=== PATIENT | male | born 1965 | race Caucasian/White ===

== ENCOUNTER 2016-08-07 17:02 | Emergency (ER) | payer MEDICAID, OTHER ==
[2016-08-07] MEDS ORDERED: Sodium Chloride 0.9% 10 ML Syringe FLUSH PRN (17:15)
[2016-08-07] MEDS ORDERED: Sodium Chloride 0.9% 2.5 ML Syringe FLUSH PRN (17:15)
[2016-08-07 17:43] LABS: CHLORIDE,CL 103 mmol/L (98-110); SODIUM,NA 142 mmol/L (136-146)
[2016-08-07 17:59] VITALS: BP 113/81
--- NOTE | 2016-08-07 18:05 | EDM.PDOC ---
ED HPI GENERAL MEDICAL PROBLEM - General Chief Complaint: General Stated Complaint: CHEST PAIN Time Seen by Provider: 08/07/16 17:05 Source of Information: Reports: Patient History Limitations: Reports: No limitations, Intoxication - History of Present Illness INITIAL COMMENTS - FREE TEXT/NARRATIVE: History of present illness: [50-year-old male comes in complaining of chest pain, as well as acknowledging that he is an alcoholic and he fell and hit his head last night knocking teeth out as well as knocking him unconscious.] Review of systems: As per history of present illness and below otherwise all systems reviewed and negative. Past medical history: As per history of present illness and as reviewed below otherwise noncontributory. Surgical history: As per history of present illness and as reviewed below otherwise noncontributory. Social history: No reported history of drug or alcohol abuse. Family history: As per history of present illness and as reviewed below otherwise noncontributory. Physical exam: HEENT: Atraumatic, normocephalic, pupils reactive, negative for conjunctival pallor or scleral icterus, mucous membranes moist, throat clear, neck supple, nontender, trachea midline. Lungs: Clear to auscultation, breath sounds equal bilaterally, chest nontender. Heart: S1S2, regular, negative for clicks, rubs, or JVD. Abdomen: Soft, nondistended, nontender. Negative for masses or hepatosplenomegaly. Negative for costovertebral tenderness. Pelvis: Stable nontender. Genitourinary: Deferred. Rectal: Deferred. Extremities: Atraumatic, negative for cords or calf pain. Neurovascular unremarkable. Neuro: Awake, alert, oriented. Cranial nerves II through XII unremarkable. Cerebellum unremarkable. Motor and sensory unremarkable throughout. Exam nonfocal. Results are all negative for head CT as well as cardiac workup- is present at bedside willing to take patient home. Diagnostics: [Cardiac workup, CT of head] Therapeutics: [] Impression: [Alcohol intoxication, chest pain] Plan: [Discharge to home with ] Definitive disposition and diagnosis as appropriate pending reevaluation and review of above. 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 Cardiovascular History: Reports: Hypertension Respiratory History: Reports: None Gastrointestinal History: Reports: None Genitourinary History: Reports: None Musculoskeletal History: Reports: None Neurological History: Reports: Seizure Psychiatric History: Reports: Addiction, Anxiety, Depression, Psych Hospitalization(s), Suicide attempt, Suicidal ideation, Other (see below) Other Psychiatric History: alcohol abuse Endocrine/Metabolic History: Reports: None Hematologic History: Reports: None Immunologic History: Reports: None Oncologic (Cancer) History: Reports: None Dermatologic History: Reports: Eczema - Infectious Disease History Infectious Disease History: Reports: None - Past Surgical History Head Surgeries/Procedures: Reports: None HEENT Surgical History: Reports: None Cardiovascular Surgical History: Reports: None GI Surgical History: Reports: None Male Surgical History: Reports: None Endocrine Surgical History: Reports: None Neurological Surgical History: Reports: None Musculoskeletal Surgical History: Reports: None Dermatological Surgical History: Reports: None Social & Family History - Family History Family Medical History: Noncontributory Cardiac: Reports: Other (see below) Other Cardiac Family History: Paroxysmal atrial tachycardia - Tobacco Use Smoking Status *Q: Current Every Day Smoker Years of Tobacco use: 30 Packs/Tins Daily: 1 Used Tobacco, but Quit: No Second Hand Smoke Exposure: Yes - Caffeine Use Caffeine Use: Reports: None Caffeine Use Comment: 1 /day - Alcohol Use Days Per Week of Alcohol Use: 7 Number of Drinks Per Day: 8 Total Drinks Per Week: 56 - Recreational Drug Use Recreational Drug Use: No Drug Use in Last 12 Months: No Recreational Drug Use Frequency: Patient Refuses To Answer ED ROS GENERAL - Review of Systems Review Of Systems: See Below (See history of present illness) ED EXAM, GENERAL - Physical Exam Exam: See Below (See history of present illness) Course - Vital Signs Last Recorded V/S: Last Vital Signs Temp Pulse 107 H 08/07/16 17:04 Resp 16 08/07/16 17:04 BP 129/83 08/07/16 17:04 Pulse Ox 99 02/26/17 17:04 - Orders/Labs/Meds Orders: Active Orders 24 hr Category Date Time Status EKG Documentation Completion [RC] STAT Care 08/07/16 17:09 Active Chest 1V Frontal [CR] Stat Exams 08/07/16 17:09 Ordered CBC WITH AUTO DIFF [HEME] Stat Lab 08/07/16 17:09 Ordered COMPREHENSIVE METABOLIC PN,CMP [CHEM] Stat Lab 08/07/16 17:09 Ordered TROPONIN I [CHEM] Stat Lab 08/07/16 17:09 Ordered Departure - Departure Time of Disposition: 18:10 Disposition: Home, Self-Care 01 Condition: good Clinical Impression: Alcohol abuse, Atypical chest pain Instructions: Nonspecific Chest Pain, [id number] Additional Instructions: The following information is given to patients seen in the emergency department who are being discharged to home. This information is to outline your options for follow-up care. We provide all patients seen in our emergency department with a follow-up referral. The need for follow-up, as well as the timing and circumstances, are variable depending upon the specifics of your emergency department visit. If you don't have a primary care physician on staff, we will provide you with a referral. We always advise you to contact your personal physician following an emergency department visit to inform them of the circumstance of the visit and for follow-up with them and/or the need for any referrals to a consulting specialist. The emergency department will also refer you to a specialist when appropriate. This referral assures that you have the opportunity for follow-up care with a specialist. All of these measure are taken in an effort to provide you with optimal care, which includes your follow-up. Under all circumstances we always encourage you to contact your private physician who remains a resource for coordinating your care. When calling for follow-up care, please make the office aware that this follow-up is from your recent emergency room visit. If for any reason you are refused follow-up, please contact the [facility] Emergency Department at and asked to speak to the emergency department charge nurse. Followup with primary care provider one to 2 days He been provided with resources in the community to assist you in alcohol withdrawal as you have indicated is your desire Return to ED as needed only as discussed - My Orders Last 24 Hours: My Active Orders 08/07/16 17:09 EKG Documentation Completion [RC] STAT Chest 1V Frontal [CR] Stat CBC WITH AUTO DIFF [HEME] Stat COMPREHENSIVE METABOLIC PN,CMP [CHEM] Stat TROPONIN I [CHEM] Stat - Assessment/Plan Last 24 Hours: My Active Orders 08/07/16 17:09 EKG Documentation Completion [RC] STAT Chest 1V Frontal [CR] Stat CBC WITH AUTO DIFF [HEME] Stat COMPREHENSIVE METABOLIC PN,CMP [CHEM] Stat TROPONIN I [CHEM] Stat
--- NOTE | 2016-08-08 17:11 | CR ---
EXAM DATE: 08/07/16 PATIENT'S AGE: 50 Patient: MADDIE LOFTON Facility: [place], [place] Site . Site : 1965 Study: XRay Chest [id number] 5:27:50 PM Ordering Physician: Doctor Benavidez Final Report: INDICATION: chest pain COMPARISON: Chest x-ray dated 29 May 2016. FINDINGS: A single portable chest x-ray shows a normal cardiac silhouette. The lungs show no focal pulmonary opacities. Sharp pleural margins. No pneumothorax. IMPRESSION: No evidence of acute pulmonary abnormalities. Dictated by Roque Márquez MD @ 08/07/2016 5:37:23 PM Dictated by: Roque Márquez MD @ 08/07/2016 17:37:31 (Electronic Signature) Report Signed by Proxy and Original Signed Document filed in the Medical Record. MTDMichael
--- NOTE | 2016-08-08 17:13 | CT ---
EXAM DATE: 08/07/16 PATIENT'S AGE: 50 Patient: MADDIE LOFTON Facility: [place], [place] Site . Site : 1965 Study: CT Head WO CONT [id number]/2017 5:45:21 PM Ordering Physician: Doctor Benavidez Final Report: INDICATION: Pain. Technique: CT head without IV contrast. Comparison: CT head 05/10/2016. Findings: Opacification of some of the left mastoid air cells stable. No intracranial hemorrhage, edema, or mass-effect. Mild to intermediate diffuse cerebral atrophy greatest superiorly. Mild cerebellar atrophy stable. No intracranial hemorrhage, edema, or mass effect. Small low-density foci in the thalami and basal ganglia specially laterally some which are more distinct are either related to old lacunar infarcts or prominent perivascular spaces. Remainder negative. Impression: 1. Moderate chronic intracranial disease without acute intracranial disease. 2. Mild stable opacification of a few left mastoid air cells consistent with stable inflammation or edema. Dictated by Kleber Baer MD @ Aug 07 2016 5:51PM (Electronic Signature) Report Signed by Proxy and Original Signed Document filed in the Medical Record. JANETH
== END 2016-08-07 18:16 | disposition home or self-care (01) ==
LOC: MW.ED 17:02
DX: R07.89 Other chest pain (principal); F10.129 Alcohol abuse with intoxication, unspecified; I10 Essential (primary) hypertension; F41.8 Other specified anxiety disorders; F17.210 Nicotine dependence, cigarettes, uncomplicated
CPT/HCPCS: 36415; 70450; 70450-26; 71010; 71010-26; 80053; 82150; 83690; 84484; 85025; 93005; 99284; 99285-25

== ENCOUNTER 2016-10-03 23:47 | Inpatient (IN) | payer MEDICAID ==
[2016-10-04] MEDS ORDERED: MVI, Adult with Vitamin K 10 ML, Thiamine 100 MG, Folic Acid 1 MG in Sodium Chloride 0.... IV ONE ×4 (00:16)
--- NOTE | 2016-10-04 00:21 | EDM.PDOC ---
ED HPI Behavioral Health - General Chief Complaint: Behavioral/Psych Stated Complaint: MENTAL ISSUES Time Seen by Provider: 10/04/16 00:10 Source of Information: Reports: Patient, Police, RN - History of Present Illness INITIAL COMMENTS - FREE TEXT/NARRATIVE: He was brought to the emergency department today his states that he was suicidal. He spoke about "blowing his brains out "he told me he does not want to live. He states that he feels worthless. He states that he is an alcoholic and has been drinking. 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 Cardiovascular History: Reports: Hypertension Respiratory History: Reports: None Gastrointestinal History: Reports: None Genitourinary History: Reports: None Musculoskeletal History: Reports: None Neurological History: Reports: Seizure Psychiatric History: Reports: Addiction, Anxiety, Depression, Psych Hospitalization(s), Suicide attempt, Suicidal ideation, Other (see below) Other Psychiatric History: alcohol abuse Endocrine/Metabolic History: Reports: None Hematologic History: Reports: None Immunologic History: Reports: None Oncologic (Cancer) History: Reports: None Dermatologic History: Reports: Eczema - Infectious Disease History Infectious Disease History: Reports: None - Past Surgical History Head Surgeries/Procedures: Reports: None HEENT Surgical History: Reports: None Cardiovascular Surgical History: Reports: None GI Surgical History: Reports: None Male Surgical History: Reports: None Endocrine Surgical History: Reports: None Neurological Surgical History: Reports: None Musculoskeletal Surgical History: Reports: None Dermatological Surgical History: Reports: None Social & Family History - Family History Family Medical History: Noncontributory Cardiac: Reports: Other (see below) Other Cardiac Family History: Paroxysmal atrial tachycardia - Tobacco Use Smoking Status *Q: Current Every Day Smoker Years of Tobacco use: 30 Packs/Tins Daily: 2 Used Tobacco, but Quit: No Second Hand Smoke Exposure: Yes - Caffeine Use Caffeine Use: Reports: None Caffeine Use Comment: 1 /day - Alcohol Use Days Per Week of Alcohol Use: 7 Number of Drinks Per Day: 8 Total Drinks Per Week: 56 - Recreational Drug Use Recreational Drug Use: No Drug Use in Last 12 Months: No Recreational Drug Use Frequency: Patient Refuses To Answer ED ROS GENERAL - Review of Systems Review Of Systems: See Below Constitutional: Denies: fever Respiratory: Reports: Cough, Sputum Cardiovascular: Reports: Chest pain (Mild left anterior chest pain. He has an area of tenderness over his left anterior chest) GI/Abdominal: Denies: Abdominal pain (.), Hematochezia ED EXAM, BEHAVIORAL HEALTH - Physical Exam Exam: See Below General Appearance: alert, other (He is quite talkative.) Throat/Mouth: Other (widespread.) Neck: supple Respiratory/Chest: no respiratory distress, lungs clear (History: Coughing during), no accessory muscle use (He has a small area of left anterior chest wall), other (His an area over the left anterior chest and slight tenderness that is small perhaps about 3 x 3 cm.) Cardiovascular: regular rate, rhythm (.) GI/Abdominal: non tender Neurological: alert Psychiatric: alert, suicidal thoughts, other (He is talkative but cooperative he is not agitated). No: pressured speech COURSE, BEHAVIORAL HEALTH COMP - Course Vital Signs: Last Vital Signs Temp 97.0 F 10/03/16 23:57 Pulse 90 10/03/16 23:57 Resp 20 10/03/16 23:57 BP 120/83 10/03/16 23:57 Pulse Ox 98 10/03/16 23:57 Orders, Labs, Meds: Active Orders 24 hr Category Date Time Status Chest 1V Frontal [CR] Stat Exams 10/04/16 00:27 Taken CKMB [CHEM] Stat Lab 10/04/16 00:35 Received DRUG SCREEN, URINE [URCHEM] Stat Lab 10/04/16 00:14 Uncollected FREE T3 [REF] Stat Lab 10/04/16 00:35 Received TSH [CHEM] Stat Lab 10/04/16 00:35 Received MVI, Adult with Vitamin K [Infuvite Adult] 10 ml Med 10/04/16 00:16 Active Thiamine [Vitamin B-1] 100 mg Folic Acid 1 mg Sodium Chloride 0.9% [Normal Saline] 1,000 ml IV ONETIME Medication Orders Multivitamins/Minerals 10 ml/Thiamine HCl 100 mg/ Folic Acid 1 mg/ Sodium Chloride 1,011.2 mls @ 200 mls/hr IV ONETIME ONE Stop: 10/04/16 05:19 Last Admin: 10/04/16 00:41 Dose: 200 mls/hr Laboratory Tests 10/04/16 10/04/16 10/04/16 Range/Units 00:35 00:35 00:35 WBC 4.69 (4.0-11.0) K/uL RBC 4.49 L (4.50-5.90) M/uL Hgb 15.3 (13.0-17.0) g/dL Hct 44.7 (38.0-50.0) % MCV 99.6 H (80.0-98.0) fL MCH 34.1 H (27.0-32.0) pg MCHC 34.2 (31.0-37.0) g/dL RDW Std Deviation 49.5 (28.0-62.0) fl RDW Coeff of Vikram 14 (11.0-15.0) % Plt Count 203 (150-400) K/uL MPV 9.70 (7.40-12.00) fL Neut % (Auto) 36.5 L (48.0-80.0) % Lymph % (Auto) 55.0 H (16.0-40.0) % Lucas % (Auto) 7.5 (0.0-15.0) % Eos % (Auto) 0.6 (0.0-7.0) % Baso % (Auto) 0.4 (0.0-1.5) % Neut # (Auto) 1.7 (1.4-5.7) K/uL Lymph # (Auto) 2.6 H (0.6-2.4) K/uL Lucas # (Auto) 0.4 (0.0-0.8) K/uL Eos # (Auto) 0.0 (0.0-0.7) K/uL Baso # (Auto) 0.0 (0.0-0.1) K/uL Nucleated RBC % 0.0 /100WBC Nucleated RBCs # 0 K/uL Sodium 144 (136-146) mmol/L Potassium 3.2 L (3.5-5.1) mmol/L Chloride 106 (98-110) mmol/L Carbon Dioxide 22 (21-31) mmol/L BUN 4 L (6.0-23.0) mg/dL Creatinine 0.7 (0.6-1.5) mg/dL Est Cr Clr Drug Dosing 123.44 mL/min Estimated GFR (MDRD) > 60.0 ml/min Glucose 97 (60-110) mg/dL Calcium 8.9 (8.8-10.8) mg/dL Magnesium 2.0 (1.5-2.3) mEq/L Total Bilirubin 0.4 (0.1-1.5) mg/dL AST 126 H (5-40) IU/L ALT 82 H (8-54) IU/L Alkaline Phosphatase 152 H (40-150) Troponin I < 0.10 (0.0-0.29) NG/ML Total Protein 7.7 (6.0-8.0) g/dL Albumin 4.0 (3.5-5.0) g/dL Globulin 3.7 H (2.0-3.5) g/dL Albumin/Globulin Ratio 1.1 L (1.3-2.8) Ethyl Alcohol 358.5 mg/dL Medications Generic Name Dose Route Start Last Admin Trade Name Freq PRN Reason Stop Dose Admin Multivitamins/Minerals 10 ml/ 1,011.2 mls @ 200 mls/hr 10/04/16 00:16 00:41 Thiamine HCl 100 mg/ Folic IV 10/04/16 05:19 200 mls/hr Acid 1 mg/ Sodium Chloride ONETIME ONE Administration Discontinued Medications Generic Name Dose Route Start Last Admin Trade Name Freq PRN Reason Stop Dose Admin Levofloxacin/Dextrose 750 mg/ 150 mls @ 100 mls/hr 10/04/16 00:30 Premix IV 10/04/16 00:55 DAILY BENY Departure - Departure Time of Disposition: 01:35 Disposition: Admitted As Inpatient 64 Condition: fair Clinical Impression: Alcohol abuse, Suicidal ideation Referrals: PCP,None [Primary Care Provider] - Forms: ED Department Discharge - Problem List & Annotations (1) Bronchitis SNOMED Code(s): 98189047 Code(s): J40 - BRONCHITIS, NOT SPECIFIED ACUTE OR CHRONIC Status: Acute Current Visit: Yes (2) Alcohol abuse SNOMED Code(s): 42954501 Code(s): F10.10 - ALCOHOL ABUSE, UNCOMPLICATED Status: Acute Current Visit: Yes (3) Suicidal ideation SNOMED Code(s): 1423836, 321624958 Code(s): R45.851 - SUICIDAL IDEATIONS Status: Acute Current Visit: Yes - Problem List Review Problem List Initiated/Reviewed/Updated: Yes - My Orders Last 24 Hours: My Active Orders 10/04/16 00:14 DRUG SCREEN, URINE [URCHEM] Stat 10/04/16 00:16 MVI, Adult with Vitamin K [Infuvite Adult] 10 ml Thiamine [Vitamin B-1] 100 mg Folic Acid 1 mg Sodium Chloride 0.9% [Normal Saline] 1,000 ml IV ONETIME 10/04/16 00:27 Chest 1V Frontal [CR] Stat 10/04/16 00:35 CKMB [CHEM] Stat FREE T3 [REF] Stat TSH [CHEM] Stat - Assessment/Plan Last 24 Hours: My Active Orders 10/04/16 00:14 DRUG SCREEN, URINE [URCHEM] Stat 10/04/16 00:16 MVI, Adult with Vitamin K [Infuvite Adult] 10 ml Thiamine [Vitamin B-1] 100 mg Folic Acid 1 mg Sodium Chloride 0.9% [Normal Saline] 1,000 ml IV ONETIME 10/04/16 00:27 Chest 1V Frontal [CR] Stat 10/04/16 00:35 CKMB [CHEM] Stat FREE T3 [REF] Stat TSH [CHEM] Stat Plan: will admit to the ICU See Orders
[2016-10-04] MEDS ORDERED: Levofloxacin/Dextrose 5%-Water 750 MG in Premix Bag 1 BAG IV SCH (00:30)
[2016-10-04 01:07] LABS: CHLORIDE,CL 106 mmol/L (98-110); SODIUM,NA 144 mmol/L (136-146)
[2016-10-04] MEDS ORDERED: Bisacodyl 5 MG Tab PO PRN (01:25)
[2016-10-04] MEDS ORDERED: Acetaminophen 325 MG Tab PO PRN (01:25)
[2016-10-04] MEDS ORDERED: Temazepam 15 MG Cap PO PRN (01:25)
[2016-10-04] MEDS ORDERED: Ondansetron 4 MG Tab.DIS PO PRN (01:25)
[2016-10-04] MEDS ORDERED: NS + KCl 20mEq/L 1,000 ML IV SCH (01:30)
[2016-10-04] MEDS: LORazepam 2 MG/ML MDV IVPUSH PRN ×2 (02:32→12:30)
--- NOTE | 2016-10-04 05:23 | PCM.SN ---
- Free Text/Narrative Note: I came by to see the patient. He is sleeping peacefully. No recent behavioral issues noted by nursing staff. We'll continue to monitor in this area.
[2016-10-04 08:05] LABS: CHLORIDE,CL 111 mmol/L (98-110); SODIUM,NA 146 mmol/L (136-146)
[2016-10-04] MEDS ORDERED: Multivitamins with Minerals and Iron Liquid ML 240 ML Bottle PO SCH (09:00)
[2016-10-04] MEDS ORDERED: Thiamine 100 MG Tab PO SCH (09:00)
[2016-10-04] MEDS ORDERED: Folic Acid 1 MG Tab PO SCH (09:00)
[2016-10-04] MEDS ORDERED: Multivitamins with Iron/Calcium/Folic Acid/Minerals Tab PO SCH (09:00)
[2016-10-04] MEDS ORDERED: Lisinopril 10 MG Tab PO SCH (09:00)
[2016-10-04] MEDS ORDERED: Phenytoin 100 MG Cap.ER PO SCH (09:00)
--- NOTE | 2016-10-04 09:30 | PCM.HP ---
H&P History of Present Illness - General Date of Service: 10/04/16 Admit Problem/Dx: Admission Diagnosis/Problem Admission Diagnosis/Problem Alcohol intoxication Source of Information: Patient History Limitations: Reports: No limitations - History of Present Illness Initial Comments - Free Text/Narative: Admission diagnoses: #1. Acute alcohol intoxication #2. Suicidal ideation Discharge diagnoses: #1. acute alcohol intoxication #2. Suicidal ideation, resolved 50-year-old male is admitted with acute alcohol intoxication and suicidal ideation. Patient was brought to the emergency room by his who is concerned about his safety after the patient told her that he "wanted to blow his brains out". He also told the ER physician that he no longer wants to live. The patient has been admitted in the past for suicidal ideations and has had suicide attempts in the past. Patient states that he does not have an active plan of how he would harm himself. Patient is unemployed and having financial problems. The patient is an alcoholic and drinks 8 beers a day. His last drink was last night just prior to presenting to the emergency room. Patient has been to treatment once for his alcoholism and has never been through withdrawal. He has been seen by a psychiatrist in the past in [place], [place]. He no longer sees a psychiatrist or counselor. Patient is not currently taking any medications for anxiety or depression. Patient will not say if he uses illicit drugs. He has smoked one pack per day over the past 30 years. Patient does have a history of depression and anxiety. The patient denies any acute concerns including headache, dizziness, chest pain, palpitations, shortness of breath, wheezing, cough, abdominal pain, nausea, vomiting, constipation, diarrhea, dysuria, hematuria, fever, peripheral edema. ER course: Ethanol level was 358. Urine drug screen was positive for benzodiazepines. Initial troponin was negative. TSH was negative. CBC was negative. Patient does have elevated liver enzymes likely secondary to chronic alcohol use. Potassium was 3.20 with potassium supplementation is improved to 3.6. Patient was given one dose of Levaquin IV secondary to COPD. 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 Cardiovascular History: Reports: Hypertension Respiratory History: Reports: None Gastrointestinal History: Reports: None Genitourinary History: Reports: None Musculoskeletal History: Reports: None Neurological History: Reports: Seizure Psychiatric History: Reports: Addiction, Anxiety, Depression, Psych Hospitalization(s), Suicide attempt, Suicidal ideation, Other (see below) Other Psychiatric History: alcohol abuse Endocrine/Metabolic History: Reports: None Hematologic History: Reports: None Immunologic History: Reports: None Oncologic (Cancer) History: Reports: None Dermatologic History: Reports: Eczema - Infectious Disease History Infectious Disease History: Reports: None - Past Surgical History Head Surgeries/Procedures: Reports: None HEENT Surgical History: Reports: None Cardiovascular Surgical History: Reports: None GI Surgical History: Reports: None Male Surgical History: Reports: None Endocrine Surgical History: Reports: None Neurological Surgical History: Reports: None Musculoskeletal Surgical History: Reports: None Dermatological Surgical History: Reports: None Social & Family History - Family History Family Medical History: Noncontributory Cardiac: Reports: Other (see below) Other Cardiac Family History: Paroxysmal atrial tachycardia - Tobacco Use Smoking Status *Q: Current Every Day Smoker Years of Tobacco use: 40 Packs/Tins Daily: 2 Used Tobacco, but Quit: No Second Hand Smoke Exposure: Yes - Caffeine Use Caffeine Use: Reports: Coffee, Soda Caffeine Use Comment: 1 /day - Alcohol Use Days Per Week of Alcohol Use: 7 Number of Drinks Per Day: 10 Total Drinks Per Week: 70 Date of Last Drink: 10/03/16 Time of Last Drink: 00:00 - Recreational Drug Use Recreational Drug Use: Yes Drug Use in Last 12 Months: No Recreational Drug Type: Reports: Cocaine, Methamphetamine Other Recreational Drug Type: when he was young Recreational Drug Use Frequency: Not Used In Over 6 Months H&P Review of Systems - Review of Systems: Review Of Systems: See Below General: Reports: fatigue HEENT: Reports: no symptoms Pulmonary: Reports: No Symptoms Cardiovascular: Reports: no symptoms Gastrointestinal: Reports: No symptoms Genitourinary: Reports: no symptoms Musculoskeletal: Reports: no symptoms Skin: Reports: no symptoms Psychiatric: Reports: no symptoms Neurological: Reports: No Symptoms Hematologic/Lymphatic: Reports: no symptoms Immunologic: Reports: no symptoms Exam - Exam Exam: See Below - Vital Signs Vital Signs: Last Vital Signs Temp 98.1 F 10/04/16 08:00 Pulse 111 H 10/04/16 09:00 Resp 16 10/04/16 09:00 BP 137/93 H 10/04/16 09:00 Pulse Ox 94 L 10/04/16 09:00 Weight: 176 lb 9.444 oz - Exam Quality Assessment: DVT prophylaxis (scd's) General: alert, oriented, cooperative HEENT: Hearing intact, Mucosa moist & pink Neck: supple, trachea midline, 2 Lungs: Clear to auscultation, Normal respiratory effort Cardiovascular: regular rhythm, tachycardia (105 beats per minute) Abdomen: normal bowel sounds, soft Extremities: normal inspection. No: calf tenderness, edema Peripheral Pulses: 2+: radial (L), radial (R) Skin: warm, dry, intact Neuro Extensive - Mental Status: alert, oriented x3, normal cognition Psychiatric: alert, normal mood, other (Flat affect. Deny suicidal/homicidal ideations.) - Patient Data Lab Results last 24 hrs: Laboratory Results - last 24 hr 10/04/16 10/04/16 10/04/16 Range/Units 01:45 07:31 07:31 WBC 2.95 L (4.0-11.0) K/uL RBC 4.03 L (4.50-5.90) M/uL Hgb 13.4 (13.0-17.0) g/dL Hct 40.7 (38.0-50.0) % MCV 101.0 H (80.0-98.0) fL MCH 33.3 H (27.0-32.0) pg MCHC 32.9 (31.0-37.0) g/dL RDW Std Deviation 50.5 (28.0-62.0) fl RDW Coeff of Vikram 14 (11.0-15.0) % Plt Count 160 (150-400) K/uL MPV 9.30 (7.40-12.00) fL Neut % (Auto) 49.2 (48.0-80.0) % Lymph % (Auto) 41.0 H (16.0-40.0) % [place] % (Auto) 8.8 (0.0-15.0) % Eos % (Auto) 0.7 (0.0-7.0) % Baso % (Auto) 0.3 (0.0-1.5) % Neut # (Auto) 1.5 (1.4-5.7) K/uL Lymph # (Auto) 1.2 (0.6-2.4) K/uL [place] # (Auto) 0.3 (0.0-0.8) K/uL Eos # (Auto) 0.0 (0.0-0.7) K/uL Baso # (Auto) 0.0 (0.0-0.1) K/uL Nucleated RBC % 0.0 /100WBC Nucleated RBCs # 0 K/uL INR 0.97 (0.86-1.11) Sodium (136-146) mmol/L Potassium (3.5-5.1) mmol/L Chloride (98-110) mmol/L Carbon Dioxide (21-31) mmol/L BUN (6.0-23.0) mg/dL Creatinine (0.6-1.5) mg/dL Est Cr Clr Drug Dosing mL/min Estimated GFR (MDRD) ml/min Glucose (60-110) mg/dL Calcium (8.8-10.8) mg/dL Magnesium (1.5-2.3) mEq/L Total Bilirubin (0.1-1.5) mg/dL AST (5-40) IU/L ALT (8-54) IU/L Alkaline Phosphatase (40-150) Total Protein (6.0-8.0) g/dL Albumin (3.5-5.0) g/dL Globulin (2.0-3.5) g/dL Albumin/Globulin Ratio (1.3-2.8) Urine Opiates Screen NEGATIVE (NEGATIVE) Ur Oxycodone Screen NEGATIVE (NEGATIVE) Urine Methadone Screen NEGATIVE (NEGATIVE) Ur Barbiturates Screen POSITIVE (NEGATIVE) Ur Phencyclidine Scrn NEGATIVE (NEGATIVE) Ur Amphetamine Screen NEGATIVE (NEGATIVE) U Methamphetamines Scrn NEGATIVE (NEGATIVE) U Benzodiazepines Scrn NEGATIVE (NEGATIVE) U Cocaine Metab Screen NEGATIVE (NEGATIVE) U Marijuana (THC) Screen NEGATIVE (NEGATIVE) 10/04/16 Range/Units 07:31 WBC (4.0-11.0) K/uL RBC (4.50-5.90) M/uL Hgb (13.0-17.0) g/dL Hct (38.0-50.0) % MCV (80.0-98.0) fL MCH (27.0-32.0) pg MCHC (31.0-37.0) g/dL RDW Std Deviation (28.0-62.0) fl RDW Coeff of Vikram (11.0-15.0) % Plt Count (150-400) K/uL MPV (7.40-12.00) fL Neut % (Auto) (48.0-80.0) % Lymph % (Auto) (16.0-40.0) % [place] % (Auto) (0.0-15.0) % Eos % (Auto) (0.0-7.0) % Baso % (Auto) (0.0-1.5) % Neut # (Auto) (1.4-5.7) K/uL Lymph # (Auto) (0.6-2.4) K/uL [place] # (Auto) (0.0-0.8) K/uL Eos # (Auto) (0.0-0.7) K/uL Baso # (Auto) (0.0-0.1) K/uL Nucleated RBC % /100WBC Nucleated RBCs # K/uL INR (0.86-1.11) Sodium 146 (136-146) mmol/L Potassium 3.3 L (3.5-5.1) mmol/L Chloride 111 H (98-110) mmol/L Carbon Dioxide 23 (21-31) mmol/L BUN 4 L (6.0-23.0) mg/dL Creatinine 0.7 (0.6-1.5) mg/dL Est Cr Clr Drug Dosing 123.03 mL/min Estimated GFR (MDRD) > 60.0 ml/min Glucose 84 (60-110) mg/dL Calcium 7.5 L (8.8-10.8) mg/dL Magnesium 1.7 (1.5-2.3) mEq/L Total Bilirubin 0.4 (0.1-1.5) mg/dL AST 107 H (5-40) IU/L ALT 68 H (8-54) IU/L Alkaline Phosphatase 120 (40-150) Total Protein 6.1 (6.0-8.0) g/dL Albumin 3.3 L (3.5-5.0) g/dL Globulin 2.8 (2.0-3.5) g/dL Albumin/Globulin Ratio 1.2 L (1.3-2.8) Urine Opiates Screen (NEGATIVE) Ur Oxycodone Screen (NEGATIVE) Urine Methadone Screen (NEGATIVE) Ur Barbiturates Screen (NEGATIVE) Ur Phencyclidine Scrn (NEGATIVE) Ur Amphetamine Screen (NEGATIVE) U Methamphetamines Scrn (NEGATIVE) U Benzodiazepines Scrn (NEGATIVE) U Cocaine Metab Screen (NEGATIVE) U Marijuana (THC) Screen (NEGATIVE) Result Diagrams: 10/04/16 07:31 10/04/16 11:05 *Q Meaningful Use (ADM) - VTE *Q VTE Criteria *Q: - Stroke *Q Stroke Criteria *Q: - AMI *Q AMI Criteria *Q: - Problem List (1) Alcohol abuse SNOMED Code(s): 62178872 ICD Code: F10.10 - ALCOHOL ABUSE, UNCOMPLICATED Status: Acute Current Visit: Yes (2) Suicidal ideation SNOMED Code(s): 5384230, 128623228 ICD Code: R45.851 - SUICIDAL IDEATIONS Status: Acute Current Visit: Yes (3) Alcohol intoxication delirium with moderate or severe use disorder SNOMED Code(s): 13409675 ICD Code: F10.221 - ALCOHOL DEPENDENCE WITH INTOXICATION DELIRIUM Status: Acute Priority: High Current Visit: No Problem List Initiated/Reviewed/Updated: Yes Orders Last 24hrs: Active Orders 24 hr Category Date Time Status Oxygen Therapy [RC] PRN Care 10/04/16 01:42 Active Vital Signs [RC] Q1H Care 10/04/16 01:42 Active BASIC METABOLIC PANEL,BMP [CHEM] Routine Lab 10/04/16 11:00 Ordered Lisinopril [Prinivil] Med 10/04/16 09:00 Active 10 mg PO DAILY Multivitamins w-Iron/Ca/FA/Min [Thera M Plus] Med 10/04/16 09:00 Active 1 tab PO DAILY Phenytoin Med 10/04/16 09:00 Active 400 mg PO DAILY Medication Orders Acetaminophen (Tylenol) 325 mg PO Q4H PRN PRN Reason: Pain (Mild 1-3)/fever Bisacodyl (Dulcolax) 5 mg PO DAILY PRN PRN Reason: Constipation Folic Acid (Folic Acid) 1 mg PO DAILY [facility] Last Admin: 10/04/16 08:01 Dose: 1 mg Potassium Chloride/Sodium Chloride (Normal Saline With 20 Meq Kcl) 1,000 mls @ 125 mls/hr IV ASDIRECTED [facility] Last Admin: 10/04/16 03:21 Dose: 125 mls/hr Lisinopril (Prinivil) 10 mg PO DAILY [facility] Last Admin: 10/04/16 08:02 Dose: 10 mg Lorazepam (Ativan) 0 mg IVPUSH Q4H PRN; Protocol PRN Reason: Other Last Admin: 10/04/16 02:32 Dose: 2 mg Multivitamins/Minerals (Thera M Plus) 1 tab PO DAILY [facility] Last Admin: 10/04/16 09:06 Dose: 1 tab Ondansetron HCl (Zofran Odt) 4 mg PO Q4H PRN PRN Reason: nausea, able to take PO Phenytoin Sodium (Phenytoin) 400 mg PO DAILY [facility] Last Admin: 10/04/16 08:01 Dose: 400 mg Temazepam (Restoril) 15 mg PO BEDTIME PRN PRN Reason: Sleep Thiamine HCl (Vitamin B-1) 100 mg PO BID [facility] Last Admin: 10/04/16 08:01 Dose: 100 mg Assessment/Plan Comment:: 50-year-old male admitted with acute alcohol intoxication and suicidal ideation Admission diagnoses: #1. Acute alcohol intoxication #2. Suicidal ideation #3. Elevated liver enzymes likely secondary to chronic alcohol use Discharge diagnoses: #1. acute alcohol intoxication #2. Suicidal ideation, resolved #3. Elevated liver enzymes likely secondary to chronic alcohol use 50-year-old male is admitted with acute alcohol intoxication and suicidal ideation. Patient was brought to the emergency room by his who is concerned about his safety after the patient told her that he "wanted to blow his brains out". He also told the ER physician that he no longer wants to live. The patient has been admitted in the past for suicidal ideations and has had suicide attempts in the past. Patient states that he does not have an active plan of how he would harm himself. Patient is unemployed and having financial problems. The patient is an alcoholic and drinks 8 beers a day. His last drink was last night just prior to presenting to the emergency room. Patient has been to treatment once for his alcoholism and has never been through withdrawal. He has been seen by a psychiatrist in the past in [place], [place]. He no longer sees a psychiatrist or counselor. Patient is not currently taking any medications for anxiety or depression. Patient will not say if he uses illicit drugs. He has smoked one pack per day over the past 30 years. Patient does have a history of depression and anxiety. The patient denies any acute concerns including headache, dizziness, chest pain, palpitations, shortness of breath, wheezing, cough, abdominal pain, nausea, vomiting, constipation, diarrhea, dysuria, hematuria, fever, peripheral edema. ER course: Ethanol level was 358. Urine drug screen was positive for benzodiazepines. Initial troponin was negative. TSH was negative. CBC was negative. Patient does have elevated liver enzymes likely secondary to chronic alcohol use. Potassium was 3.20 with potassium supplementation is improved to 3.6. Patient was given one dose of Levaquin IV secondary to COPD. #1. Acute alcohol intoxication: -Ativan protocol initiated. Recent CIWAA scores of 16 and 10. Patient has received multiple doses of Ativan while admitted. -Ethanol level in the ER was 358. Urine drug screen was positive for benzodiazepines. TSH and initial troponin were negative. -Patient started on daily folic acid and thiamine. #2. Suicidal ideation: -Patient denies any suicidal ideation while visiting with him this morning. The ER did place a hold on the patient. -Given the patient's history, Dr. Head from psychiatry has recommended that the patient be admitted for inpatient psych. -Both the patient and his are requesting inpatient psychiatric placement for the patient. #3. Hypokalemia: -Potassium is 3.6 after potassium supplementation. #4. Tobacco use: -Nicotine patch will be placed on the patient. All of the patient's home medications were restarted. Discharge plan: #1. I spoke with Dr. Britton, ER physician in [place], [place], who accepted the patient for detox. #2. I also spoke with Dr. Patel from psychiatry in [place], [place] who suggested that the patient be transferred to [place] for detox after which time he 'll be considered for inpatient psych.
[2016-10-04] MEDS ORDERED: Nicotine 21 MG/24 Hr Patch TRDERM SCH (09:45)
--- NOTE | 2016-10-04 11:20 | CR ---
EXAM DATE: 10/04/16 PATIENT'S AGE: 50 Patient: MADDIE LOFTON Facility: [place], [place] Site . Site : [id number] Study: XRay Chest [id number]/25/2017 1:03:08 AM Ordering Physician: Elie Miguel Final Report: INDICATION: SUICIDAL, INTOXICATION TECHNIQUE: Chest 1 view COMPARISON: August 07, 2016. FINDINGS: Cardiovascular and mediastinum: Heart size and vasculature are normal in caliber and appearance. Mediastinum is within normal limits. Lungs and pleural space: No focal consolidation. Mild scarring. No sign of pleural effusion. No pneumothorax. Bones and soft tissues: No significant findings. IMPRESSION: No acute cardiopulmonary disease. Dictated by Geremias Clarke MD @ 10/04/2016 1:25:36 AM Dictated by: Geremias Clarke MD @ 10/04/2016 01:26:01 (Electronic Signature) Report Signed by Proxy and Original Signed Document filed in the Medical Record. MTDD
[2016-10-04 11:47] LABS: CHLORIDE,CL 110 mmol/L (98-110); SODIUM,NA 143 mmol/L (136-146)
[2016-10-04] MEDS ORDERED: Sodium Chloride 0.9% 1,000 ML IV SCH (12:00)
[2016-10-04 13:25] VITALS: BP 137/106
== END 2016-10-04 13:15 | DRG 897 ==
LOC: MW.ED 23:47 → MW.ICU 10-04 01:25
PROVIDERS: ADMIT Internal Medicine; ATTEND Internal Medicine
DX: F10.129 Alcohol abuse with intoxication, unspecified (principal); R45.851 Suicidal ideations; Y90.8 Blood alcohol level of 240 mg/100 ml or more; E87.6 Hypokalemia; R74.8 Abnormal levels of other serum enzymes; J40 Bronchitis, not specified as acute or chronic; F41.8 Other specified anxiety disorders; I10 Essential (primary) hypertension; F17.200 Nicotine dependence, unspecified, uncomplicated; Z79.899 Other long term (current) drug therapy
CPT/HCPCS: 71010; 71010-26; 80048; 80053; 80305; 82553; 83735; 84443; 84481; 84484; 85025; 85610; 93005; 96360; 99284; 99285-25; A9270-GY; G0480; J1956; J2060; J3411; J3480; J7040; J7050

== ENCOUNTER 2017-01-18 22:12 | Emergency (ER) | payer MEDICAID ==
[2017-01-18] MEDS ORDERED: Sodium Chloride 0.9% 1,000 ML IV ONE (22:47)
[2017-01-18] MEDS ORDERED: Sodium Chloride 0.9% 2.5 ML Syringe FLUSH PRN (22:47)
[2017-01-18] MEDS ORDERED: MVI, Adult with Vitamin K 10 ML, Thiamine 100 MG, Folic Acid 1 MG, Magnesium Sulfate 2 ... IV ONE ×5 (22:47)
[2017-01-18] MEDS ORDERED: Sodium Chloride 0.9% 10 ML Syringe FLUSH PRN (22:47)
--- NOTE | 2017-01-18 22:49 | EDM.PDOC ---
ED HPI GENERAL MEDICAL PROBLEM - General Chief Complaint: Behavioral/Psych Stated Complaint: SUICIDAL Time Seen by Provider: 01/18/17 22:39 - History of Present Illness INITIAL COMMENTS - FREE TEXT/NARRATIVE: HISTORY AND PHYSICAL: History of present illness: The patient is a 51-year-old male with a known history of alcohol use/abuse schizophrenia suicide attempts PTSD and seizures who follows in our [facility] and presents with police after he called them stating that he wanted to kill himself today. The police know this patient and he has a history of owning weapons and he was stating that he was going to either shoot himself or he was going to have " by police captain precinct" --- he said that he would provoke the police to kill him by coming out of his house with one of his weapons and provoking them to shoot him.. The patient has had admissions before for similar presentation and says that his provider in the clinic today given medications for his psychiatric issues but he read about them and refuses to take them. He admits that he drank alcohol today and he did not eat very much. The police brought him here because they are unable to take him into custody for alcohol detox if he is actively saying that he wants to hurt himself. The patient says he did not do anything to himself today and that he has no chest pain shortness of breath abdominal pain nausea vomiting or any other complaints. According to the police captain precinct the patient does have a history of becoming combative and has threatened to do so as well tonight. The patient is on Dilantin and has a prescription from his provider for that. He says that he does have seizures but cannot explain when they occur and if there alcohol related. Review of systems: As per history of present illness and below otherwise all systems reviewed and negative. Past medical history: As per history of present illness and as reviewed below otherwise noncontributory. Surgical history: As per history of present illness and as reviewed below otherwise noncontributory. Social history: No reported history of drug or alcohol abuse. Family history: As per history of present illness and as reviewed below otherwise noncontributory. Physical exam: General: Well-developed well-nourished man who is nontoxic and moves all extremities without distress. Vital signs of the note by me. He has slurring of his speech is no alcohol on his breath. HEENT: Atraumatic, normocephalic, pupils reactive, negative for conjunctival pallor or scleral icterus, mucous membranes moist, throat clear, neck supple, nontender, trachea midline. There are no midline step-offs in his defects of the cervical spine Lungs: Clear to auscultation, breath sounds equal bilaterally, chest nontender. Heart: S1S2, regular rhythm but tachycardic rate, negative for clicks, rubs, or JVD. Abdomen: Soft, nondistended, nontender. Negative for masses or hepatosplenomegaly. Negative for costovertebral tenderness. Pelvis: Stable nontender. Genitourinary: Deferred. Rectal: Deferred. Extremities: Atraumatic, negative for cords or calf pain. Neurovascular unremarkable. Full range of motion without defects or deficits Neuro: Awake, alert, oriented. Cranial nerves II through XII unremarkable. Patient had unsteady gait into the ED and needed assistance. Motor and sensory unremarkable throughout. Exam nonfocal. Skin: No evidence of any rashes or lesions and turgor is normal Psych--patient with active suicidal ideation in the ED and is somewhat confrontational with questioning Diagnostics: EKG CBC CMP alcohol aspirin and Tylenol levels TSH and Dilantin level UA UDS magnesium level Therapeutics: IV fluids, banana bag Ativan fosphenytoin 2325: HR is in the 80's now. 2330: I discussed this case with [facility] and they do not have any beds available for a psychiatric transfer. I have also discussed with [facility] and they also have no beds available. [facility] in [place] does have a bed available but they would like all lab tests performed prior to discussing this case and it is not clear if they will accept this case. I discussed this problem with the police officers at bedside including the supervising officer, Josiah Mosher, and he is aware of this dilemma. In September of this year the patient was admitted here for alcohol detox and was evaluated by telemetry psych the next day and transferred to [place] for detox and further psychiatric care at that point. This will be an option if no beds are available but due to his new homicidal ideation that is expressing currently we would need a police office or to stay at bedside. We will reevaluate pending all the labs and discussion with [facility] and the police. According to the supervising officer the patient has multiple weapons at home and his threats of killing himself or other people are real possibility. He has said that would go in his house get a gun and come out with a gun when police were present which would mandate them to shoot him which is what he wants. 0040: This case was discussed with the psychiatrist at [facility], Dr. Joyce, who was aware of this case and accepts the patient for transfer. Transfer was discussed with the patient. The psychiatrist would like me to give him a dose of his Dilantin and lisinopril if we are able. Currently the patient is not being very cooperative and we will give him Ativan and send Ativan with him the paramedics. We will retry having him take his medications after the Ativan. I will give him a dose of fosphenytoin IM. If he refuses to take his lisinopril prior to departure from our ER, they will need to address that on arrival in [place]. All appropriate forms are being faxed Impression: Suicidal ideation, alcohol intoxication, alcohol use/abuse, history of psychiatric problems Definitive disposition and diagnosis as appropriate pending reevaluation and review of above. 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 Cardiovascular History: Reports: Hypertension Respiratory History: Reports: None Gastrointestinal History: Reports: None Genitourinary History: Reports: None Musculoskeletal History: Reports: None Neurological History: Reports: Seizure Psychiatric History: Reports: Addiction, Anxiety, Depression, Psych Hospitalization(s), Suicide Attempt, Suicidal Ideation, Other (See Below) Other Psychiatric History: alcohol abuse Endocrine/Metabolic History: Reports: None Hematologic History: Reports: None Immunologic History: Reports: None Oncologic (Cancer) History: Reports: None Dermatologic History: Reports: Eczema - Infectious Disease History Infectious Disease History: Reports: None - Past Surgical History Head Surgeries/Procedures: Reports: None HEENT Surgical History: Reports: None Cardiovascular Surgical History: Reports: None GI Surgical History: Reports: None Male Surgical History: Reports: None Endocrine Surgical History: Reports: None Neurological Surgical History: Reports: None Musculoskeletal Surgical History: Reports: None Dermatological Surgical History: Reports: None Social & Family History - Family History Family Medical History: Noncontributory Cardiac: Reports: Other (See Below) Other Cardiac Family History: Paroxysmal atrial tachycardia - Tobacco Use Smoking Status *Q: Current Every Day Smoker Years of Tobacco use: 40 Packs/Tins Daily: 2 Used Tobacco, but Quit: No Second Hand Smoke Exposure: Yes - Caffeine Use Caffeine Use: Reports: Coffee, Soda Caffeine Use Comment: 1 /day - Alcohol Use Days Per Week of Alcohol Use: 7 Number of Drinks Per Day: 10 Total Drinks Per Week: 70 - Recreational Drug Use Recreational Drug Use: Yes Drug Use in Last 12 Months: No Recreational Drug Type: Reports: Cocaine, Methamphetamine Other Recreational Drug Type: when he was young Recreational Drug Use Frequency: Not Used In Over 6 Months ED ROS GENERAL - Review of Systems Review Of Systems: ROS reveals no pertinent complaints other than HPI. ED EXAM, GENERAL - Physical Exam Exam: See Below (See dictation) Course - Vital Signs Last Recorded V/S: Last Vital Signs Temp 36.8 C 01/18/17 22:31 Pulse 104 H 01/18/17 22:31 Resp 21 H 01/18/17 22:31 BP 173/120 H 01/18/17 22:31 Pulse Ox 95 01/18/17 22:31 - Orders/Labs/Meds Orders: Active Orders 24 hr Category Date Time Status Blood Glucose Check, Bedside [RC] ONETIME Care 01/18/17 22:46 Active Cardiac Monitoring [RC] . DIRECTED Care 01/18/17 22:46 Active Communication Order [RC] STAT Care 01/19/17 00:51 Ordered EKG Documentation Completion [RC] STAT Care 01/18/17 22:45 Active Pulse Oximetry [RC] ASDIRECTED Care 01/18/17 22:46 Active MVI, Adult with Vitamin K [Infuvite Adult] 10 ml Med 01/18/17 23:38 Active Thiamine [Vitamin B-1] 100 mg Folic Acid 1 mg Sodium Chloride 0.9% [Normal Saline] 1,000 ml IV ONETIME Sodium Chloride 0.9% [Saline Flush] Med 01/18/17 22:47 Active 10 ml FLUSH ASDIRECTED PRN Sodium Chloride 0.9% [Saline Flush] Med 01/18/17 22:47 Active 2.5 ml FLUSH ASDIRECTED PRN Saline Lock Insert [OM.PC] Stat Oth 01/18/17 22:45 Ordered Medication Orders Multivitamins/Minerals 10 ml/Thiamine HCl 100 mg/ Folic Acid 1 mg/ Sodium Chloride 1,011.2 mls @ 150 mls/hr IV ONETIME ONE Stop: 01/19/17 06:22 Last Admin: 01/18/17 23:40 Dose: 150 mls/hr Sodium Chloride (Saline Flush) 10 ml FLUSH ASDIRECTED PRN PRN Reason: Keep Vein Open Last Admin: 01/18/17 23:23 Dose: 10 ml Sodium Chloride (Saline Flush) 2.5 ml FLUSH ASDIRECTED PRN PRN Reason: Keep Vein Open Last Admin: 01/18/17 23:22 Dose: 2.5 ml Labs: Laboratory Tests 01/18/17 01/18/17 01/18/17 Range/Units 23:16 23:16 23:58 WBC 5.67 (4.0-11.0) K/uL RBC 4.53 (4.50-5.90) M/uL Hgb 14.7 (13.0-17.0) g/dL Hct 44.3 (38.0-50.0) % MCV 97.8 (80.0-98.0) fL MCH 32.5 H (27.0-32.0) pg MCHC 33.2 (31.0-37.0) g/dL RDW Std Deviation 58.6 (28.0-62.0) fl RDW Coeff of Vikram 16 H (11.0-15.0) % Plt Count 202 (150-400) K/uL MPV 9.10 (7.40-12.00) fL Neut % (Auto) 55.4 (48.0-80.0) % Lymph % (Auto) 37.0 (16.0-40.0) % Swain % (Auto) 6.9 (0.0-15.0) % Eos % (Auto) 0.5 (0.0-7.0) % Baso % (Auto) 0.2 (0.0-1.5) % Neut # (Auto) 3.1 (1.4-5.7) K/uL Lymph # (Auto) 2.1 (0.6-2.4) K/uL Swain # (Auto) 0.4 (0.0-0.8) K/uL Eos # (Auto) 0.0 (0.0-0.7) K/uL Baso # (Auto) 0.0 (0.0-0.1) K/uL Nucleated RBC % 0.0 /100WBC Nucleated RBCs # 0 K/uL Sodium 144 (136-146) mmol/L Potassium 3.6 (3.5-5.1) mmol/L Chloride 105 (98-110) mmol/L Carbon Dioxide 25 (21-31) mmol/L BUN 7 (6.0-23.0) mg/dL Creatinine 0.7 (0.6-1.5) mg/dL Est Cr Clr Drug Dosing 126.01 mL/min Estimated GFR (MDRD) > 60.0 ml/min Glucose 101 (60-110) mg/dL Calcium 9.3 (8.8-10.8) mg/dL Magnesium 1.8 (1.5-2.3) mEq/L Total Bilirubin 0.2 (0.1-1.5) mg/dL AST 50 H (5-40) IU/L ALT 32 (8-54) IU/L Alkaline Phosphatase 106 (40-150) Total Protein 7.5 (6.0-8.0) g/dL Albumin 3.8 (3.5-5.0) g/dL Globulin 3.7 H (2.0-3.5) g/dL Albumin/Globulin Ratio 1.0 L (1.3-2.8) TSH 3rd Generation 0.82 (0.47-5.0) uIU/mL Urine Color Urine Appearance Urine pH (5.0-8.0) Ur Specific [place] (1.001-1.035) Urine Protein (NEGATIVE) mg/dL Urine Glucose (UA) (NEGATIVE) mg/dL Urine Ketones (NEGATIVE) mg/dL Urine Occult Blood (NEGATIVE) Urine Nitrite (NEGATIVE) Urine Bilirubin (NEGATIVE) Urine Urobilinogen (<2.0) EU/dL Ur Leukocyte Esterase (NEGATIVE) Urine RBC (0-2/HPF) Urine WBC (0-5/HPF) Ur Epithelial Cells (NONE-FEW) Urine Bacteria (NEGATIVE) Salicylates < 5.0 (0-20) mg/dL Urine Opiates Screen NEGATIVE (NEGATIVE) Ur Oxycodone Screen NEGATIVE (NEGATIVE) Urine Methadone Screen NEGATIVE (NEGATIVE) Acetaminophen < 3.0 ug/mL Ur Barbiturates Screen POSITIVE (NEGATIVE) Phenytoin 11.66 (10-20) ug/mL Ur Phencyclidine Scrn NEGATIVE (NEGATIVE) Ur Amphetamine Screen NEGATIVE (NEGATIVE) U Methamphetamines Scrn NEGATIVE (NEGATIVE) U Benzodiazepines Scrn NEGATIVE (NEGATIVE) U Cocaine Metab Screen NEGATIVE (NEGATIVE) U Marijuana (THC) Screen NEGATIVE (NEGATIVE) Ethyl Alcohol 348.3 mg/dL 01/18/17 Range/Units 23:58 WBC (4.0-11.0) K/uL RBC (4.50-5.90) M/uL Hgb (13.0-17.0) g/dL Hct (38.0-50.0) % MCV (80.0-98.0) fL MCH (27.0-32.0) pg MCHC (31.0-37.0) g/dL RDW Std Deviation (28.0-62.0) fl RDW Coeff of Vikram (11.0-15.0) % Plt Count (150-400) K/uL MPV (7.40-12.00) fL Neut % (Auto) (48.0-80.0) % Lymph % (Auto) (16.0-40.0) % Swain % (Auto) (0.0-15.0) % Eos % (Auto) (0.0-7.0) % Baso % (Auto) (0.0-1.5) % Neut # (Auto) (1.4-5.7) K/uL Lymph # (Auto) (0.6-2.4) K/uL Swain # (Auto) (0.0-0.8) K/uL Eos # (Auto) (0.0-0.7) K/uL Baso # (Auto) (0.0-0.1) K/uL Nucleated RBC % /100WBC Nucleated RBCs # K/uL Sodium (136-146) mmol/L Potassium (3.5-5.1) mmol/L Chloride (98-110) mmol/L Carbon Dioxide (21-31) mmol/L BUN (6.0-23.0) mg/dL Creatinine (0.6-1.5) mg/dL Est Cr Clr Drug Dosing mL/min Estimated GFR (MDRD) ml/min Glucose (60-110) mg/dL Calcium (8.8-10.8) mg/dL Magnesium (1.5-2.3) mEq/L Total Bilirubin (0.1-1.5) mg/dL AST (5-40) IU/L ALT (8-54) IU/L Alkaline Phosphatase (40-150) Total Protein (6.0-8.0) g/dL Albumin (3.5-5.0) g/dL Globulin (2.0-3.5) g/dL Albumin/Globulin Ratio (1.3-2.8) TSH 3rd Generation (0.47-5.0) uIU/mL Urine Color YELLOW Urine Appearance CLEAR Urine pH 7.5 (5.0-8.0) Ur Specific [place] <= 1.005 (1.001-1.035) Urine Protein NEGATIVE (NEGATIVE) mg/dL Urine Glucose (UA) NEGATIVE (NEGATIVE) mg/dL Urine Ketones NEGATIVE (NEGATIVE) mg/dL Urine Occult Blood NEGATIVE (NEGATIVE) Urine Nitrite NEGATIVE (NEGATIVE) Urine Bilirubin NEGATIVE (NEGATIVE) Urine Urobilinogen 0.2 (<2.0) EU/dL Ur Leukocyte Esterase NEGATIVE (NEGATIVE) Urine RBC 0-1 (0-2/HPF) Urine WBC 0-1 (0-5/HPF) Ur Epithelial Cells RARE (NONE-FEW) Urine Bacteria RARE (NEGATIVE) Salicylates (0-20) mg/dL Urine Opiates Screen (NEGATIVE) Ur Oxycodone Screen (NEGATIVE) Urine Methadone Screen (NEGATIVE) Acetaminophen ug/mL Ur Barbiturates Screen (NEGATIVE) Phenytoin (10-20) ug/mL Ur Phencyclidine Scrn (NEGATIVE) Ur Amphetamine Screen (NEGATIVE) U Methamphetamines Scrn (NEGATIVE) U Benzodiazepines Scrn (NEGATIVE) U Cocaine Metab Screen (NEGATIVE) U Marijuana (THC) Screen (NEGATIVE) Ethyl Alcohol mg/dL Meds: Medications Generic Name Dose Route Start Last Admin Trade Name Freq PRN Reason Stop Dose Admin Multivitamins/Minerals 10 ml/ 1,011.2 mls @ 150 mls/hr 01/18/17 23:38 23:40 Thiamine HCl 100 mg/ Folic IV 01/19/17 06:22 150 mls/hr Acid 1 mg/ Sodium Chloride ONETIME ONE Administration Sodium Chloride 10 ml 01/18/17 22:47 01/18/17 23:23 Saline Flush FLUSH 10 ml ASDIRECTED PRN Administration Keep Vein Open Sodium Chloride 2.5 ml 01/18/17 22:47 01/18/17 23:22 Saline Flush FLUSH 2.5 ml ASDIRECTED PRN Administration Keep Vein Open Discontinued Medications Generic Name Dose Route Start Last Admin Trade Name Freq PRN Reason Stop Dose Admin Multivitamins/Minerals 10 ml/ 1,015.2 mls @ 150 mls/hr 01/18/17 22:47 23:49 Thiamine HCl 100 mg/ Folic IV 01/19/17 05:33 Not Given Acid 1 mg/ Magnesium Sulfate 2 ONETIME ONE gm/ Sodium Chloride Sodium Chloride 1,000 mls @ 999 mls/hr 01/18/17 22:47 01/18/17 23:23 Normal Saline IV 01/18/17 23:47 999 mls/hr STAT ONE Administration Magnesium Sulfate 2 gm/ Premix 50 mls @ 50 mls/hr 01/18/17 23:30 01/18/17 23: 40 IV 01/19/17 00:29 50 mls/hr ONETIME ONE Administration Lisinopril 10 mg 01/19/17 00:49 Prinivil PO 01/19/17 00:50 ONETIME ONE Lorazepam 2 mg 01/19/17 00:49 Ativan IVPUSH 01/19/17 00:50 ONETIME ONE Nicotine 14 mg 01/19/17 00:29 01/19/17 00:36 Habitrol TRDERM 01/19/17 00:30 14 mg ONETIME ONE Administration Phenytoin Sodium 400 mg 01/19/17 00:51 Phenytoin PO 01/19/17 00:52 ONETIME ONE Departure - Departure Time of Disposition: 01:01 Disposition: DC/Tfer to Psych Hosp/Unit 65 Condition: Fair Clinical Impression: Suicidal ideation Alcohol intoxication Qualifiers: Complication of substance-induced condition: uncomplicated Qualified Code(s): F10.920 - Alcohol use, unspecified with intoxication, uncomplicated - Discharge Information Forms: ED Department Discharge - My Orders Last 24 Hours: My Active Orders 01/18/17 22:45 EKG Documentation Completion [RC] STAT Saline Lock Insert [OM.PC] Stat 01/18/17 22:46 Blood Glucose Check, Bedside [RC] ONETIME Cardiac Monitoring [RC] . DIRECTED Pulse Oximetry [RC] ASDIRECTED 01/18/17 22:47 Sodium Chloride 0.9% [Saline Flush] 10 ml FLUSH ASDIRECTED PRN Sodium Chloride 0.9% [Saline Flush] 2.5 ml FLUSH ASDIRECTED PRN 01/18/17 23:38 MVI, Adult with Vitamin K [Infuvite Adult] 10 ml Thiamine [Vitamin B-1] 100 mg Folic Acid 1 mg Sodium Chloride 0.9% [Normal Saline] 1,000 ml IV ONETIME 01/19/17 00:51 Communication Order [RC] STAT - Assessment/Plan Last 24 Hours: My Active Orders 01/18/17 22:45 EKG Documentation Completion [RC] STAT Saline Lock Insert [OM.PC] Stat 01/18/17 22:46 Blood Glucose Check, Bedside [RC] ONETIME Cardiac Monitoring [RC] . DIRECTED Pulse Oximetry [RC] ASDIRECTED 01/18/17 22:47 Sodium Chloride 0.9% [Saline Flush] 10 ml FLUSH ASDIRECTED PRN Sodium Chloride 0.9% [Saline Flush] 2.5 ml FLUSH ASDIRECTED PRN 01/18/17 23:38 MVI, Adult with Vitamin K [Infuvite Adult] 10 ml Thiamine [Vitamin B-1] 100 mg Folic Acid 1 mg Sodium Chloride 0.9% [Normal Saline] 1,000 ml IV ONETIME 01/19/17 00:51 Communication Order [RC] STAT
[2017-01-18] MEDS ORDERED: Magnesium Sulfate/Water 2 GM in Premix Bag 1 BAG IV ONE (23:30)
[2017-01-18] MEDS ORDERED: MVI, Adult with Vitamin K 10 ML, Thiamine 100 MG, Folic Acid 1 MG in Sodium Chloride 0.... IV ONE ×4 (23:38)
[2017-01-18 23:48] LABS: CHLORIDE,CL 105 mmol/L (98-110); SODIUM,NA 144 mmol/L (136-146)
[2017-01-19 00:03] LABS: ACETAMINOPHEN < 3.0 ug/mL
[2017-01-19] MEDS ORDERED: Nicotine 14 MG/24 Hr Patch TRDERM ONE (00:29)
[2017-01-19] MEDS ORDERED: Lisinopril 10 MG Tab PO ONE (00:49)
[2017-01-19] MEDS ORDERED: LORazepam 2 MG/ML MDV IVPUSH ONE (00:49)
[2017-01-19] MEDS ORDERED: Phenytoin 100 MG Cap.ER PO ONE (00:51)
[2017-01-19] MEDS ORDERED: Fosphenytoin 500 MG.PE/10 ML SDV IM ONE (01:03)
[2017-01-19 02:37] VITALS: BP 134/85
== END 2017-01-19 01:45 ==
LOC: MW.ED 22:12
DX: R45.851 Suicidal ideations (principal); F10.120 Alcohol abuse with intoxication, uncomplicated; I10 Essential (primary) hypertension; F17.210 Nicotine dependence, cigarettes, uncomplicated; Z91.048 Other nonmedicinal substance allergy status; Z79.899 Other long term (current) drug therapy
CPT/HCPCS: 36415; 80053; 80185; 80305; 81001; 82962; 83735; 84443; 85025; 93005; 96365; 96366; 96368; 96375; 99285; A9270; G0480; J2060; J3411; J3475; J7040

== ENCOUNTER 2017-05-07 16:15 | Emergency (ER) | payer OTHER ==
[2017-05-07 16:32] VITALS: BP 138/81
--- NOTE | 2017-05-07 16:34 | EDM.PDOC ---
ED HPI GENERAL MEDICAL PROBLEM - General Chief Complaint: Lower Extremity Injury/Pain Stated Complaint: HURT RIGHT ANKLE Time Seen by Provider: 05/07/17 16:32 Source of Information: Reports: Patient History Limitations: Reports: No Limitations - History of Present Illness INITIAL COMMENTS - FREE TEXT/NARRATIVE: HISTORY AND PHYSICAL: []51-year-old male presenting with right ankle pain History of Present Illness: []Patient twisted his ankle on Monday while at work thought it would settle down , but it has not Review of Systems: As per history of present illness and below otherwise all systems reviewed and negative. Past medical history: As per history of present illness and as reviewed below otherwise noncontributory. Surgical history: As per history of present illness and as reviewed below otherwise noncontributory. Social history: No reported history of drug or alcohol abuse. Family history: As per history of present illness and as reviewed below otherwise noncontributory. Physical exam: Alert and oriented male answering questions appropriately in full sentences with no shortness of breath HEENT: Atraumatic, normocehpalic, pupils reactive, negative for conjunctival pallor or scleral icterus, mucous membranes moist, throat clear, neck supple, nontender, trachea midline. Lungs: Clear to auscultation, breath sounds equal bilaterally, chest non tender. Heart: S1S2, regular, negative for clicks, rubs, or JVD. Abdomen: Soft, nondistended, nontender. Negative for masses or hepatossplenmegaly. Negative for costovertebral tenderness. Pelvis: Stable nontender. Genitourinary: Deferred. Rectal: Deferred Extremities: Atraumatic, negative for cords or calf pain. Minimal edema to the ankle. No heat radiating tenderness on movement Neurovascular unremarkable. Neuro: Awake, alert, oriented. Cranial nerves II through XII unremarkable. Cerebellum unremarkable. Motor and sensory unremarkable throughout. Exam nonfocal. Discussed case with patient and his x-ray showing no fracture Diagnostics: []X-ray right ankle Therapeutics: [] Impression: [Sprain] Plan: []Discharged to home Use splint to give protection to ankle Follow-up with your primary care in 2 days Diclofenac Definitive disposition and diagnosis as appropriate pending reevaluation and review of above. 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 Cardiovascular History: Reports: Hypertension Respiratory History: Reports: None Gastrointestinal History: Reports: None Genitourinary History: Reports: None Musculoskeletal History: Reports: None Neurological History: Reports: Seizure Psychiatric History: Reports: Addiction, Anxiety, Depression, Psych Hospitalization(s), Suicide Attempt, Suicidal Ideation, Other (See Below) Other Psychiatric History: alcohol abuse Endocrine/Metabolic History: Reports: None Hematologic History: Reports: None Immunologic History: Reports: None Oncologic (Cancer) History: Reports: None Dermatologic History: Reports: Eczema - Infectious Disease History Infectious Disease History: Reports: None - Past Surgical History Head Surgeries/Procedures: Reports: None HEENT Surgical History: Reports: None Cardiovascular Surgical History: Reports: None GI Surgical History: Reports: None Male Surgical History: Reports: None Endocrine Surgical History: Reports: None Neurological Surgical History: Reports: None Musculoskeletal Surgical History: Reports: None Dermatological Surgical History: Reports: None Social & Family History - Family History Family Medical History: Noncontributory Cardiac: Reports: Other (See Below) Other Cardiac Family History: Paroxysmal atrial tachycardia - Tobacco Use Smoking Status *Q: Current Every Day Smoker Years of Tobacco use: 40 Packs/Tins Daily: 2 Used Tobacco, but Quit: No Second Hand Smoke Exposure: Yes - Caffeine Use Caffeine Use: Reports: Coffee, Soda Caffeine Use Comment: 1 /day - Alcohol Use Days Per Week of Alcohol Use: 7 Number of Drinks Per Day: 10 Total Drinks Per Week: 70 - Recreational Drug Use Recreational Drug Use: Yes Drug Use in Last 12 Months: No Recreational Drug Type: Reports: Cocaine, Methamphetamine Other Recreational Drug Type: when he was young Recreational Drug Use Frequency: Not Used In Over 6 Months Review of Systems - Review of Systems Review Of Systems: ROS reveals no pertinent complaints other than HPI. ED EXAM, GENERAL - Physical Exam Exam: See Below (see dictations) Course - Vital Signs Last Recorded V/S: Last Vital Signs Temp 37.0 C 05/07/17 16:15 Pulse 82 05/07/17 16:15 Resp 18 05/07/17 16:15 BP 138/81 05/07/17 16:15 Pulse Ox - Orders/Labs/Meds Orders: Active Orders 24 hr Category Date Time Status Ankle Min 3V Rt [CR] Stat Exams 05/07/17 16:32 Taken Departure - Departure Time of Disposition: 17:04 Disposition: Home, Self-Care 01 Condition: Good Clinical Impression: Ankle sprain Qualifiers: Encounter type: initial encounter Involved ligament of ankle: other ligament Laterality: right Qualified Code(s): S93.491A - Sprain of other ligament of right ankle, initial encounter - Discharge Information Referrals: PCP,None [Primary Care Provider] - Forms: ED Department Discharge Additional Instructions: The following information is given to patients seen in the emergency department who are being discharged to home. This information is to outline your options for follow-up care. We provide all patients seen in our emergency department with a follow-up referral. The need for follow-up, as well as the timing and circumstances, are variable depending upon the specifics of your emergency department visit. If you don't have a primary care physician on staff, we will provide you with a referral. We always advise you to contact your personal physician following an emergency department visit to inform them of the circumstance of the visit and for follow-up with them and/or the need for any referrals to a consulting specialist. The emergency department will also refer you to a specialist when appropriate. This referral assures that you have the opportunity for followup care with a specialist. All of these measure are taken in an effort to provide you with optimal care, which includes your followup. Under all circumstances we always encourage you to contact your private physician who remains a resource for coordinating your care. When calling for followup care, please make the office aware that this follow-up is from your recent emergency room visit. If for any reason you are refused follow-up, please contact the [facility] emergency department at and asked to speak to the emergency department charge nurse. Keep splint on Off work 2 days Elevate and ice Follow-up with your primary care provider - My Orders Last 24 Hours: My Active Orders 05/07/17 16:32 Ankle Min 3V Rt [CR] Stat - Assessment/Plan Last 24 Hours: My Active Orders 05/07/17 16:32 Ankle Min 3V Rt [CR] Stat
--- NOTE | 2017-05-08 16:54 | CR ---
EXAM DATE: 05/07/17 PATIENT'S AGE: 51 Patient: MADDIE LOFTON Facility: [place], [place] Site . Site : 1965 Study: XRay Extremity Right ankle [id number] 4:50:00 PM Ordering Physician: Doctor Benavidez Final Report: INDICATION: Pain. Technique: Three views of the right ankle. Findings: No acute fracture or dislocation. Accessory ossicles adjacent to the medial malleolus. The mortise is uniform. Soft tissues are unremarkable. Impression: No acute abnormality of the right ankle. Dictated by Judy Cronin MD @ May 07 2017 5:12PM (Electronic Signature) Report Signed by Proxy. JANETH
== END 2017-05-07 17:15 | disposition home or self-care (01) ==
LOC: MW.ED 16:15
DX: S93.491A Sprain of other ligament of right ankle, initial encounter (principal); F17.210 Nicotine dependence, cigarettes, uncomplicated; Z79.899 Other long term (current) drug therapy; X50.1XXA Overexertion from prolonged static or awkward postures, initial encounter
CPT/HCPCS: 73610-26-RT; 73610-RT; 99283

== ENCOUNTER 2017-07-02 02:11 | Emergency (ER) | payer SELFPAY ==
--- NOTE | 2017-07-02 02:26 | EDM.PDOC ---
ED HPI GENERAL MEDICAL PROBLEM - General Stated Complaint: MENTAL HEALTH Time Seen by Provider: 07/02/17 02:16 - History of Present Illness INITIAL COMMENTS - FREE TEXT/NARRATIVE: HISTORY AND PHYSICAL: History of present illness: Patient is 51-year-old white male history of depression and substance abuse who presents with a concern of depressive episode with suicidal ideation patient is in custody of law enforcement were called for assistance when patient threatened to shoot himself. Review of systems: As per history of present illness and below otherwise all systems reviewed and negative. Past medical history: As per history of present illness and as reviewed below otherwise noncontributory. Surgical history: As per history of present illness and as reviewed below otherwise noncontributory. Social history: No reported history of drug or alcohol abuse. Family history: As per history of present illness and as reviewed below otherwise noncontributory. Physical exam: HEENT: Atraumatic, normocephalic, pupils reactive, negative for conjunctival pallor or scleral icterus, mucous membranes moist, throat clear, neck supple, nontender, trachea midline. Lungs: Clear to auscultation, breath sounds equal bilaterally, chest nontender. Heart: S1S2, regular, negative for clicks, rubs, or JVD. Abdomen: Soft, nondistended, nontender. Negative for masses or hepatosplenomegaly. Negative for costovertebral tenderness. Pelvis: Stable nontender. Genitourinary: Deferred. Rectal: Deferred. Extremities: Atraumatic, negative for cords or calf pain. Neurovascular unremarkable. Neuro: Awake, alert, oriented. Cranial nerves II through XII unremarkable. Cerebellum unremarkable. Motor and sensory unremarkable throughout. Exam nonfocal. Diagnostics: Psychiatric panel Therapeutics: None Impression: #1 depressive episode suicidal ideation #2 substance abuse Definitive disposition and diagnosis as appropriate pending reevaluation and review of above. 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 Cardiovascular History: Reports: Hypertension Respiratory History: Reports: None Gastrointestinal History: Reports: None Genitourinary History: Reports: None Musculoskeletal History: Reports: None Neurological History: Reports: Seizure Psychiatric History: Reports: Addiction, Anxiety, Depression, Psych Hospitalization(s), Suicide Attempt, Suicidal Ideation, Other (See Below) Other Psychiatric History: alcohol abuse Endocrine/Metabolic History: Reports: None Hematologic History: Reports: None Immunologic History: Reports: None Oncologic (Cancer) History: Reports: None Dermatologic History: Reports: Eczema - Infectious Disease History Infectious Disease History: Reports: None - Past Surgical History Head Surgeries/Procedures: Reports: None HEENT Surgical History: Reports: None Cardiovascular Surgical History: Reports: None GI Surgical History: Reports: None Male Surgical History: Reports: None Endocrine Surgical History: Reports: None Neurological Surgical History: Reports: None Musculoskeletal Surgical History: Reports: None Dermatological Surgical History: Reports: None Social & Family History - Family History Family Medical History: Noncontributory Cardiac: Reports: Other (See Below) Other Cardiac Family History: Paroxysmal atrial tachycardia - Tobacco Use Smoking Status *Q: Current Every Day Smoker Years of Tobacco use: 40 Packs/Tins Daily: 2 Used Tobacco, but Quit: No Second Hand Smoke Exposure: Yes - Caffeine Use Caffeine Use: Reports: Coffee, Soda Caffeine Use Comment: 1 /day - Alcohol Use Days Per Week of Alcohol Use: 7 Number of Drinks Per Day: 10 Total Drinks Per Week: 70 - Recreational Drug Use Recreational Drug Use: Yes Drug Use in Last 12 Months: No Recreational Drug Type: Reports: Cocaine, Methamphetamine Other Recreational Drug Type: when he was young Recreational Drug Use Frequency: Not Used In Over 6 Months ED ROS GENERAL - Review of Systems Review Of Systems: ROS reveals no pertinent complaints other than HPI. ED EXAM, GENERAL - Physical Exam Exam: See Below (dictation) Departure - Departure Time of Disposition: 02:26 Disposition: DC/Tfer to Psych Hosp/Unit 65 Condition: Good Clinical Impression: Alcohol abuse, Suicidal ideation - Discharge Information Referrals: Deacon Franco MD [Primary Care Provider] -
[2017-07-02 03:11] LABS: ACETAMINOPHEN < 3.0 ug/mL; CHLORIDE,CL 107 mmol/L (98-110); SODIUM,NA 145 mmol/L (136-146)
[2017-07-02] MEDS ORDERED: MVI, Adult with Vitamin K 10 ML, Thiamine 100 MG, Folic Acid 1 MG in Sodium Chloride 0.... IV ONE ×4 (03:49)
[2017-07-02 05:19] VITALS: BP 129/70
--- NOTE | 2017-07-03 18:34 | CR ---
EXAM DATE: 07/02/17 PATIENT'S AGE: 51 Patient: MADDIE LOFTON Facility: [place], [place] Site . Site : 1965 Study: XRay Chest [id number]/21/2018 2:56:26 AM Ordering Physician: Padma Pa Final Report: INDICATION: SOB TECHNIQUE: Chest 1 view COMPARISON: October 04, 2016 FINDINGS: Cardiovascular and mediastinum: Heart size and vasculature are normal in caliber and appearance. Mediastinum is within normal limits. Lungs and pleural space: No focal consolidation. Mild scarring. Scattered calcified granulomata. No sign of pleural effusion. No pneumothorax. Bones and soft tissues: No significant findings. IMPRESSION: No acute cardiopulmonary disease Dictated by Geremias Clarke MD @ 07/02/2017 3:11:57 AM Dictated by: Geremias Clarke MD @ 07/02/2017 03:12:23 (Electronic Signature) Report Signed by Proxy. [facility]ITALMichael
== END 2017-07-02 05:25 ==
LOC: MW.ED 02:11
DX: F32.9 Major depressive disorder, single episode, unspecified (principal); R45.851 Suicidal ideations; F10.10 Alcohol abuse, uncomplicated; F17.210 Nicotine dependence, cigarettes, uncomplicated; Z79.899 Other long term (current) drug therapy
CPT/HCPCS: 71045; 80053; 82553; 83735; 84443; 84481; 84484; 85025; 93005; 96365; 99285; G0480; J3411; J7040; 36415